=== PATIENT | male | born 1945 | race African-American/Black ===

== ENCOUNTER 2017-07-31 14:25 | Inpatient (IN) | payer MEDICARE ==
[~2017-07-31] VITALS: Ht 172.7 cm; Wt 75.3 kg
[2017-07-31] MEDS ORDERED: ASPI81TA31 PO (15:33)
[2017-07-31] MEDS ORDERED: AMLO5TAB2 PO (15:33)
[2017-07-31] MEDS ORDERED: ATOR10TA PO (15:33)
--- NOTE | 2017-07-31 15:48 | NUR ---
DR BAXTER AT THE BEDSIDE.
[2017-07-31 16:06] LABS: BASOPHILS % (AUTO) 0.8 % (0.0-2.0); EOSINOPHILS # (AUTO) 0.3 K/uL (0.0-0.7); EOSINOPHILS % (AUTO) 7.3 % (0.0-7.0); HEMATOCRIT 48.3 % (36.7-47.1); HEMOGLOBIN 16.3 g/dL (12.5-16.3); LYMPHOCYTES # (AUTO) 1.1 K/uL (20.0-40.0); LYMPHOCYTES % (AUTO) 22.7 % (20.5-51.5); MEAN CORPUSCULAR HEMOGLOBIN 27.9 uug (23.8-33.4); MEAN CORPUSCULAR HGB CONC 34 g/dL (32.5-36.3); MEAN CORPUSCULAR VOLUME 82.9 fL (73.0-96.2); MONOCYTES # (AUTO) 0.4 K/uL (2.0-10.0); MONOCYTES % (AUTO) 7.6 % (0.0-11.0); NEUTROPHILS # (AUTO) 2.9 K/uL (1.8-8.9); NEUTROPHILS % (AUTO) 61.6 % (38.5-71.5); PLATELET COUNT (AUTO) 128 K/uL (152-348); RED BLOOD CELL COUNT(AUTO) 5.83 MIL/uL (4.06-5.63); WHITE BLOOD COUNT (AUTO) 4.8 K/uL (3.6-10.2)
[2017-07-31 16:13] LABS: POTASSIUM 4.2 mmol/L (3.5-5.1)
[2017-07-31 16:19] LABS: TOTAL PROTEIN, SERUM 7.5 g/dL (6.4-8.2)
--- NOTE | 2017-07-31 17:41 | NUR ---
CALLED [facility] FOR PANEL CALL, DR VERONICA TO CALL BACK
--- NOTE | 2017-07-31 18:10 | NUR ---
SBAR REPORT TO MAYA MILLIGAN.
--- NOTE | 2017-07-31 19:07 | NUR ---
SBAR REPORT WAS GIVEN TO MAYA MILLIGAN 2ND FLOOR [facility], HOWEVER STILL AWAITING FOR DR VERONICA TO CALL AND ACCEPT THE SDMISSION, SBAR REPORT NOEW TO TANJA MILLIGAN. DINNER GIVEN TO PT.
--- NOTE | 2017-07-31 19:12 | NUR ---
REPORT TAKEN FROM FAITH MILLIGAN. ASSUMING PT CARE AT THIS TIME.
[2017-07-31] MEDS ORDERED: ONDANSETRON 4 MG/2 ML VIAL IV PRN (19:15)
[2017-07-31] MEDS ORDERED: Z GUARD REMEDY PASTE 57 GM TUBE TOP PRN (19:15)
[2017-07-31] MEDS ORDERED: ACETAMINOPHEN 325 MG TABLET PO PRN (19:15)
[2017-07-31] MEDS ORDERED: ONDANSETRON 4 MG/2 ML VIAL ONE (19:28)
[2017-07-31] MEDS ORDERED: ONDANSETRON 4 MG/2 ML VIAL IV ONE (19:30)
--- NOTE | 2017-07-31 21:00 | NUR ---
Pt. admitted to [facility], under care of Dr. VERONICA Belongs List completed
--- NOTE | 2017-07-31 21:20 | NUR ---
Admitted a 71 y.o male patient from ER via [place] with DX: Bradycardia. Patient AAO, no acute distress noted. Denies pain. Routine [facility] care discussed with patient. Verbalized understanding. Assessment completed and documented. Saline lock to LHD intact. S/P cataract surgery R eye today; R eye shield in place. Addendum: 08/01/[address] RN Amended: Links added. Addendum: 08/01/17 at [address] RN Amended: Links added.
[2017-07-31] MEDS: IV NS 1000 ML 1,000 ML IV PRN (21:28)
[2017-07-31 21:30] LABS: *BILIRUBIN,URIN NEGATIVE (NEGATIVE); *BLOOD, URINE NEGATIVE (NEGATIVE); *CLARITY,URINE CLEAR (CLEAR); *COLOR,URINE YELLOW (YELLOW); *KETONES,URINE TRACE (NEGATIVE); *PROTEIN,URINE NEGATIVE (NEGATIVE); LEUKOCYTE ESTERASE ,URINE NEGATIVE (NEGATIVE); NITRITE, URINE NEGATIVE (NEGATIVE); PH,URINE 7.5 (5.0-8.0); UGLUCOSE NEGATIVE (NEGATIVE)
--- NOTE | 2017-07-31 21:30 | NUR ---
Up to the BR by himself. Voided clear charlie urine. Specimen obtained and sent to lab. IV NS started @ 75ml/H to patent IV site. Fall and safety precautions discussed with patient; verbalized understanding. Addendum: 08/01/17 at [address] RN Amended: Links added.
[2017-07-31 21:34] LABS: BACTERIA,URINE FEW /HPF (NONE SEEN); SQUAMOUS EPITHELIAL CELL,UR FEW /HPF (NONE SEEN); WBC,URINE 0-3 /HPF (0-3)
[2017-07-31 22:00] VITALS: BP 132/65
[2017-08-01] VITALS: BP 130/69
[2017-08-01 04:00] VITALS: BP 125/62
[2017-08-01 06:05] LABS: BASOPHILS # (AUTO) 0.1 K/uL (0.0-8.0); BASOPHILS % (AUTO) 0.8 % (0.0-2.0); EOSINOPHILS # (AUTO) 0.3 K/uL (0.0-0.7); EOSINOPHILS % (AUTO) 4.5 % (0.0-7.0); HEMATOCRIT 44.9 % (36.7-47.1); LYMPHOCYTES # (AUTO) 1.3 K/uL (20.0-40.0); LYMPHOCYTES % (AUTO) 22.3 % (20.5-51.5); MEAN CORPUSCULAR HEMOGLOBIN 27.8 uug (23.8-33.4); MEAN CORPUSCULAR HGB CONC 33 g/dL (32.5-36.3); MEAN CORPUSCULAR VOLUME 83.5 fL (73.0-96.2); MONOCYTES # (AUTO) 0.5 K/uL (2.0-10.0); MONOCYTES % (AUTO) 8.3 % (0.0-11.0); NEUTROPHILS # (AUTO) 3.8 K/uL (1.8-8.9); NEUTROPHILS % (AUTO) 64.1 % (38.5-71.5); PLATELET COUNT (AUTO) 140 K/uL (152-348); RED BLOOD CELL COUNT(AUTO) 5.37 MIL/uL (4.06-5.63)
[2017-08-01 06:35] LABS: CREATININE 0.9 mg/dL (0.6-1.3); MAGNESIUM 2.3 mg/dL (1.8-2.4); PHOSPHOROUS 3.3 mg/dL (2.5-4.9); POTASSIUM 4.1 mmol/L (3.5-5.1); TOTAL PROTEIN, SERUM 6.7 g/dL (6.4-8.2)
[2017-08-01 07:56] VITALS: BP 127/60
[2017-08-01] MEDS: IV NS 1000 ML 1,000 ML IV PRN (08:46)
[2017-08-01 10:56] VITALS: BP 127/68
[2017-08-01 11:12] LABS: THYROID STIMULATING HORMONE 0.57 mIU/mL (0.358-3.740)
--- NOTE | 2017-08-01 14:52 | NUR ---
DCD instructions and education package provided to patient who verbalized understanding to follow up with pcp and commercial real estate broker. Patient stating he has an appointment schedule to see his commercial real estate broker tomorrow at around 1130. Belongings list signed. IV line dcd patient awaiting for to pick him up.
--- NOTE | 2017-08-01 15:35 | NUR ---
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 Ambulatory able to walk to lobby. vitals stable no c/of of any discomfort.
== END 2017-08-01 15:36 | disposition home or self-care (01) | DRG 918 ==
LOC: ER 14:25 → DOU 20:38 → TELE-TD 21:00 → MED 08-01 14:44
PROVIDERS: ADMIT Internal Medicine; ATTEND Internal Medicine
DX: T88.59XA Other complications of anesthesia, initial encounter (principal); R00.1 Bradycardia, unspecified; E78.5 Hyperlipidemia, unspecified; R55 Syncope and collapse; Z98.41 Cataract extraction status, right eye; I10 Essential (primary) hypertension; Z79.82 Long term (current) use of aspirin
CPT/HCPCS: 36415; 70030-TC; 71045; 83735; 84100; 84443; 85025; 85610; 93005; A4663; J2405; J7030